=== PATIENT | male | born 1960 | race African-American/Black ===

== ENCOUNTER 2020-04-03 19:35 | Observation (INO) ==
[2020-04-03 20:01] LABS: Basophils # 0.1 10*3/uL (0.0-0.2); Basophils % 1.1 % (0.0-0.8); Eosinophils # 0.1 10*3/uL (0.0-0.87); Eosinophils % 2.2 % (0.00-10.9); Hematocrit 51.3 VOL% (42.0-52.0); Hemoglobin 17.4 GM/DL (14.0-18.0); Immature Granulocytes % 0.2 %; Immature Granulocytes Absolute 0.01 #; Lymphocytes # 3.3 10*3/uL (1.4-4.0); Mean Corpuscular HGB Conc 33.9 GM/DL (32-36); Mean Corpuscular Volume 94.1 FL (87-102); Mean Platelet Volume 11.5 FL (9.6-12.0); Neutrophils % 35.5 % (38.7-73.9); Platelet Count 165 T/CUMM (130-400); Red Blood Count 5.45 MC/CUMM (3.8-5.5); Red Cell Distribution Width 13.7 % (9.3-17.3); White Blood Count 6.4 T/CUMM (4-12)
[2020-04-03 20:18] LABS: Albumin 4.1 G/DL (3.4-5.0); Bilirubin,Total 0.5 MG/DL (0.2-1.0); Osmolality,Calculated 272.8 MOS/KG (273-304); Potassium 4.1 MMOL/L (3.5-5.1); Total Protein 7.7 G/DL (6.4-8.3)
[2020-04-03] MEDS ORDERED: ONDANSETRON 4 MG/2 ML VIAL IV STA (20:19)
[2020-04-03] MEDS ORDERED: HYDROmorphone 2 MG/1 ML VIAL IV STA (20:19)
[2020-04-03] MEDS ORDERED: NITROGLYCERIN 2% OINT 1 INCH/GM PACK TOP STA (20:19)
[2020-04-03] MEDS ORDERED: ALUM/MAG/SIMETH/LIDO VISC 1:1 30 ML BOTTLE PO STA (20:19)
[2020-04-03] MEDS ORDERED: ASPIRIN 325 MG TABLET PO STA (20:19)
[2020-04-03] MEDS ORDERED: ENOXAPARIN 100 MG/ML SYRINGE SUBCUT STA (20:46)
[2020-04-03 20:51] LABS: PT Patient Result 10.4 SECS (9.8-11.9); Partial Thromboplastin Time 27.6 SECS (23.9-33.8)
[2020-04-03 21:00] LABS: Eosinophils 1 % (0-10); Lymphocytes 54 % (20-55); Macrocytosis Slight; Reactive Lymphocytes 2+; Segmented Neutrophils 37 % (50-85); Total Cells Counted 100
[2020-04-03 21:01] LABS: Platelet Estimate Normal
[2020-04-03] MEDS ORDERED: BISACODYL 5 MG TABLET PO PRN (21:41)
[2020-04-03] MEDS ORDERED: guaiFENesin/DM ER 600-30 MG TABLET PO PRN (21:41)
[2020-04-03] MEDS ORDERED: CALCIUM CARBONATE CHEW 500 MG TABLET PO PRN (21:41)
[2020-04-03] MEDS ORDERED: diphenhydrAMINE CAP 25 MG CAPSULE PO PRN (21:41)
[2020-04-03] MEDS ORDERED: PROMETHAZINE 25 MG/1 ML VIAL IM PRN (21:41)
[2020-04-03] MEDS ORDERED: ZALEPLON 5 MG CAPSULE PO PRN (21:41)
[2020-04-03] MEDS ORDERED: ONDANSETRON 4 MG/2 ML VIAL IV PRN (21:41)
[2020-04-03] MEDS ORDERED: ALUMINUM/MAGNES/SIMETH MAX STR 30 ML UDCUP PO PRN (21:41)
[2020-04-03] MEDS ORDERED: ACETAMINOPHEN 325 MG TABLET PO PRN (21:41)
[2020-04-03] MEDS ORDERED: DEXTROSE 50% 25 GM/50 ML VIAL IV PRN (21:41)
[2020-04-03] MEDS ORDERED: SIMETHICONE CHEW 125 MG TABLET PO PRN (21:41)
[2020-04-03] MEDS ORDERED: NICOTINE 21 MG/24 HR PATCH TRANSDERM PRN ×2 (21:41→21:44)
[2020-04-03] MEDS ORDERED: GLUCAGON 1 MG VIAL IM PRN (21:41)
[2020-04-03] MEDS ORDERED: hydrALAZINE 20 MG/1 ML VIAL IV PRN (21:41)
[2020-04-03] MEDS ORDERED: NITROGLYCERIN SL 0.4 MG TABLET SL PRN (21:44)
[2020-04-04 03:04] LABS: Basophils # 0.1 10*3/uL (0.0-0.2); Eosinophils # 0.2 10*3/uL (0.0-0.87); Eosinophils % 2.4 % (0.00-10.9); Hematocrit 47.1 VOL% (42.0-52.0); Hemoglobin 16.1 GM/DL (14.0-18.0); Lymphocytes # 3.7 10*3/uL (1.4-4.0); Lymphocytes % 60.2 % (21.2-54.2); Mean Corpuscular HGB Conc 34.2 GM/DL (32-36); Mean Corpuscular Volume 94.4 FL (87-102); Monocytes % 9.1 % (1.7-12.7); Neutrophils % 27.3 % (38.7-73.9); Platelet Count 143 T/CUMM (130-400); Red Blood Count 4.99 MC/CUMM (3.8-5.5); Red Cell Distribution Width 13.8 % (9.3-17.3); White Blood Count 6.2 T/CUMM (4-12)
[2020-04-04 03:33] LABS: Calcium 8.6 MG/DL (8.5-10.1); Osmolality,Calculated 273.7 MOS/KG (273-304); Potassium 4.3 MMOL/L (3.5-5.1)
[2020-04-04 03:43] LABS: Eosinophils 2 % (0-10); Lymphocytes 73 % (20-55); Platelet Estimate Normal; Segmented Neutrophils 22 % (50-85); Total Cells Counted 100
[2020-04-04] MEDS ORDERED: POTASSIUM CHLORIDE RIDER 10 MEQ in PREMIX 1 EACH IV PRN (08:50)
[2020-04-04] MEDS ORDERED: DIAZEPAM 5 MG TABLET PO ONE (08:50)
[2020-04-04] MEDS ORDERED: diphenhydrAMINE CAP 25 MG CAPSULE PO ONE (08:50)
[2020-04-04] MEDS ORDERED: MAGNESIUM SULF RIDER 2 GM in PREMIX 1 EACH IV PRN (08:50)
[2020-04-04] MEDS ORDERED: ASPIRIN EC 81 MG TABLET PO SCH (09:00)
[2020-04-04] MEDS ORDERED: PANTOPRAZOLE 40 MG TABLET PO SCH (09:00)
[2020-04-04] MEDS ORDERED: TICAGRELOR 90 MG TABLET PO SCH (09:00)
[2020-04-04] MEDS ORDERED: SODIUM CHLORIDE 0.9% 1,000 ML IV SCH (09:00)
[2020-04-04] MEDS ORDERED: METOPROLOL TARTRATE 25 MG TABLET PO SCH (09:00)
[2020-04-04] MEDS ORDERED: ENOXAPARIN 40 MG/0.4 ML SYRINGE SUBCUT SCH (09:00)
[2020-04-04] MEDS ORDERED: LIDOCAINE 1% 20 ML VIAL ONE (09:14)
[2020-04-04] MEDS ORDERED: fentaNYL 100 MCG/2 ML VIAL ONE (09:14)
[2020-04-04] MEDS ORDERED: MIDAZOLAM 2 MG/2 ML VIAL ONE (09:14)
[2020-04-04] MEDS ORDERED: NITROGLYCERIN DRIP 50 MG/250 ML BOTTLE IV ONE (09:18)
[2020-04-04] MEDS ORDERED: VERAPAMIL 5 MG/2 ML VIAL ONE (09:18)
[2020-04-04] MEDS ORDERED: ENOXAPARIN 30 MG/0.3 ML SYRINGE ONE (09:40)
[2020-04-04 16:36] VITALS: BP 132/71
[2020-04-04] MEDS ORDERED: ATORVASTATIN 20 MG TABLET PO SCH (21:00)
[2020-04-04] MEDS ORDERED: ATORVASTATIN 40 MG TABLET PO SCH (21:00)
== END 2020-04-04 17:26 | disposition home or self-care (01) ==
LOC: N.ED 19:35 → N.EDINP 19:35 → SUATTDRO 21:41 → N.TELEN 22:46
PROVIDERS: ADMIT Internal Medicine Geriatric Medicine; ATTEND Internal Medicine Geriatric Medicine

== ENCOUNTER 2020-04-16 09:56 | Inpatient (IN) ==
[2020-04-16] MEDS ORDERED: GLUCAGON 1 MG VIAL IM PRN (10:33)
[2020-04-16] MEDS ORDERED: DEXTROSE 50% 25 GM/50 ML VIAL IV PRN (10:33)
[2020-04-16] MEDS ORDERED: NITROGLYCERIN SL 0.4 MG TABLET SL PRN (10:49)
[2020-04-16] MEDS ORDERED: CLORAZEPATE 3.75 MG TABLET PO PRN (10:49)
[2020-04-16] MEDS ORDERED: SODIUM CHLORIDE 0.9% 1,000 ML IV SCH (11:00)
[2020-04-16] MEDS: CHLORHEXIDINE 4% SOLN 118 ML BOTTLE TOP SCH ×2 (15:30→20:35)
[2020-04-16 15:42] LABS: Basophils # 0.1 10*3/uL (0.0-0.2); Basophils % 1.1 % (0.0-0.8); Eosinophils # 0.1 10*3/uL (0.0-0.87); Eosinophils % 2.1 % (0.00-10.9); Hematocrit 50.9 VOL% (42.0-52.0); Hemoglobin 17.2 GM/DL (14.0-18.0); Immature Granulocytes % 0.2 %; Immature Granulocytes Absolute 0.01 #; Lymphocytes # 2.7 10*3/uL (1.4-4.0); Lymphocytes % 40.8 % (21.2-54.2); Mean Corpuscular HGB Conc 33.8 GM/DL (32-36); Mean Corpuscular Volume 94.1 FL (87-102); Mean Platelet Volume 11.7 FL (9.6-12.0); Monocytes % 13.9 % (1.7-12.7); Neutrophils % 41.9 % (38.7-73.9); Platelet Count 162 T/CUMM (130-400); Red Blood Count 5.41 MC/CUMM (3.8-5.5); White Blood Count 6.6 T/CUMM (4-12)
[2020-04-16 16:13] LABS: Albumin 3.8 G/DL (3.4-5.0); Bilirubin,Total 0.9 MG/DL (0.2-1.0); Calcium 8.9 MG/DL (8.5-10.1); Osmolality,Calculated 283.1 MOS/KG (273-304); Potassium 4.1 MMOL/L (3.5-5.1)
[2020-04-16 17:53] LABS: ABG HCO3 24.3 MMOL/L (20-26); ABG PCO2 42.3 MM HG (35-48); ABG PH 7.384 (7.35-7.45); ABG PO2 83.8 MM HG (80-95); ABG TCO2 20.9 MMOL/L (23-27)
[2020-04-16 17:54] LABS: ABG Oxygen Saturation 96.3 % (95-100)
[2020-04-16] MEDS: CHLORHEXIDINE 0.12% ORAL RINSE 60 ML BOTTLE SWISH/SPIT SCH (20:35)
[2020-04-17] MEDS ORDERED: PAPAVERINE 60 MG/2 ML VIAL ONE (04:21)
[2020-04-17] MEDS ORDERED: VANCOMYCIN 500 MG VIAL ONE (04:22)
[2020-04-17] MEDS ORDERED: VANCOMYCIN 1,000 MG VIAL ONE (04:22)
[2020-04-17] MEDS: CHLORHEXIDINE 4% SOLN 118 ML BOTTLE TOP SCH ×2 (04:53→17:17)
[2020-04-17] MEDS ORDERED: CEFUROXIME INJ 1,500 MG in SODIUM CHLORIDE 0.9% 100 ML IV ONE (05:00)
[2020-04-17] MEDS ORDERED: MIDAZOLAM 10 MG/2 ML VIAL ONE ×4 (05:35→09:32)
[2020-04-17] MEDS ORDERED: SODIUM CHLORIDE 0.9% 1,000 ML IV ONE (05:36)
[2020-04-17] MEDS ORDERED: SODIUM CHLORIDE 0.9% 250 ML IV ONE (05:36)
[2020-04-17] MEDS ORDERED: HEPARIN/NACL 0.9% 2 UNITS/ML 500 ML IV ONE (05:36)
[2020-04-17] MEDS ORDERED: PHENYLEPHRINE DRIP 20 MG/250 ML PREMIX IV ONE (05:36)
[2020-04-17] MEDS ORDERED: SUFentanil 250 MCG/5 ML AMP ONE ×2 (05:36→07:59)
[2020-04-17] MEDS ORDERED: AMINOCAPROIC ACID 5,000 MG/20 ML VIAL ONE ×4 (05:38→09:53)
[2020-04-17] MEDS ORDERED: LACTATED RINGERS 1,000 ML IV ONE (05:51)
[2020-04-17] MEDS ORDERED: LIDOCAINE 2% 5 ML VIAL ONE ×2 (05:53→10:23)
[2020-04-17] MEDS ORDERED: VECURONIUM 10 MG VIAL IV ONE ×5 (05:53→09:32)
[2020-04-17] MEDS ORDERED: ETOMIDATE 40 MG/20 ML VIAL IV ONE (05:53)
[2020-04-17] MEDS ORDERED: MINERAL OIL/PETROLATUM OPH OINT 3.5 GM TUBE ONE (06:06)
[2020-04-17] MEDS ORDERED: PHENYLEPHRINE 1 MG/10 ML SYRINGE IV ONE (06:10)
[2020-04-17] MEDS ORDERED: CALCIUM CHLORIDE 1,000 MG/10 ML VIAL IV ONE (06:13)
[2020-04-17 07:53] LABS: ABG Base Excess -0.9 MMOL/L (-2.5-2.5); ABG HCO3 23.7 MMOL/L (20-26); ABG PCO2 42.7 MM HG (35-48); ABG PH 7.368 (7.35-7.45); ABG TCO2 20.5 MMOL/L (23-27); Glucose Heart Surgery 106 MG/DL (74-106); Hematocrit Heart Surgery 50.5 PERCENT (42-52); Hemoglobin Heart Surgery 16.5 G/DL (14.0-18.0); Ionized Calcium Arterial 1.15 MMOL/L (1.21-1.46); PCO2 Patient Temp Arterial 42.7 MMHG; PH Patient Temp Arterial 7.368; Patient Temperature 37 CELCIUS; Potassium Heart/CVR 4.1 MMOL/L (3.5-5.1); Sodium Heart/CVR 141 MMOL/L (135-145)
[2020-04-17 07:58] LABS: Bilirubin,Urine Negative (Negative); Blood, Urine Negative (Negative); Glucose,Urine (UA) Negative (Negative); Ketones,Urine Negative (Negative); Mucus,Urine Occasional /LPF (Occasional); Nitrite,Urine Negative (Negative); Protein,Urine Negative; RBC,Urine 2 /HPF (0-4); Squamous Epithelial Cell,Urine Occasional /HPF (0-10); Urine Appearance CLEAR (Clear); Urine Color Yellow (Yellow); Urine Specific Gravity 1.017 (1.001-1.035); Urine Urobilinogen < 2.0 EU/DL (0.2-1.0); WBC,Urine <1 /HPF (0-6)
[2020-04-17] MEDS ORDERED: NITROGLYCERIN DRIP 50 MG/250 ML BOTTLE IV ONE (08:43)
[2020-04-17 09:18] LABS: Hemoglobin Heart Surgery 12.3 G/DL (14.0-18.0); PCO2 Patient Temp Venous 39.3 MM HG; PH Patient Temp Venous 7.424; PO2 Patient Temp Venous 42.1 MM HG; VBG Base Excess 0.5 MEQ/L (0-4); VBG HCO3 25.9 MEQ/L (24-28); VBG Oxygen Saturation 85.9 %; VBG PCO2 44.8 MMHG (41-51); VBG PH 7.38; VBG PO2 51.9 MMHG (17-40); VBG Total CO2 27.3 MMOL/L
[2020-04-17 09:19] LABS: Potassium Heart/CVR 6.6 MMOL/L (3.5-5.1)
[2020-04-17] MEDS ORDERED: ALBUMIN 5% 12.5 GM/250 ML VIAL IV ONE (09:29)
[2020-04-17] MEDS ORDERED: POTASSIUM CHLORIDE RIDER 100 ML IV ONE (09:29)
[2020-04-17] MEDS ORDERED: PHENYLEPHRINE DRIP 40 MG/250 ML PREMIX IV ONE (09:30)
[2020-04-17] MEDS ORDERED: PROTAMINE SULFATE 50 MG/5 ML VIAL IV ONE ×2 (09:30→10:24)
[2020-04-17] MEDS ORDERED: MIDAZOLAM 2 MG/2 ML VIAL ONE (09:30)
[2020-04-17] MEDS ORDERED: diphenhydrAMINE 50 MG/1 ML VIAL ONE (09:32)
[2020-04-17] MEDS ORDERED: FAMOTIDINE 20 MG/2 ML VIAL IV ONE (09:44)
[2020-04-17 09:51] LABS: Hemoglobin Heart Surgery 13.9 G/DL (14.0-18.0); PCO2 Patient Temp Venous 41.1 MM HG; PH Patient Temp Venous 7.392; PO2 Patient Temp Venous 43.4 MM HG; VBG Base Excess -0.6 MEQ/L (0-4); VBG HCO3 24.6 MEQ/L (24-28); VBG Oxygen Saturation 82.7 %; VBG PCO2 42.9 MMHG (41-51); VBG PH 7.377; VBG PO2 46.6 MMHG (17-40)
[2020-04-17] MEDS ORDERED: ESMOLOL 100 MG/10 ML VIAL IV ONE (09:51)
[2020-04-17 09:52] LABS: Potassium Heart/CVR 6.2 MMOL/L (3.5-5.1)
[2020-04-17] MEDS ORDERED: SEVOFLURANE 1 UNIT/15 MINUTE INH ONE (09:53)
[2020-04-17 10:20] LABS: ABG Base Excess -1.6 MMOL/L (-2.5-2.5); ABG HCO3 22.6 MMOL/L (20-26); ABG Oxygen Saturation 99.3 % (95-100); ABG PCO2 36.8 MM HG (35-48); ABG PH 7.407 (7.35-7.45); ABG PO2 355.4 MM HG (80-95); ABG TCO2 23.8 MMOL/L (23-27); Glucose Heart Surgery 182 MG/DL (74-106); Hemoglobin Heart Surgery 13.7 G/DL (14.0-18.0); Ionized Calcium Arterial 1.08 MMOL/L (1.21-1.46); PCO2 Patient Temp Arterial 36.8 MMHG; PH Patient Temp Arterial 7.407; PO2 Patient Temp Arterial 355.4 MM HG; Patient Temperature 37 CELCIUS; Potassium Heart/CVR 4.1 MMOL/L (3.5-5.1); Sodium Heart/CVR 132 MMOL/L (135-145)
[2020-04-17] MEDS ORDERED: DEXTROSE 5% KCL 20 MEQ 20 MEQ/1,000 ML BAG IV ONE (10:23)
[2020-04-17] MEDS ORDERED: MANNITOL 100 GM/500 ML BAG IV ONE (10:23)
[2020-04-17] MEDS ORDERED: methylPREDNISolone SOD SUC 1,000 MG/8 ML VIAL ONE (10:23)
[2020-04-17] MEDS ORDERED: ALBUMIN 25% 25 GM/100 ML VIAL IV ONE (10:23)
[2020-04-17] MEDS ORDERED: HEPARIN 10,000 UNIT/10 ML VIAL ONE (10:23)
[2020-04-17] MEDS ORDERED: MAGNESIUM SULFATE 5 GM/10 ML VIAL IV ONE (10:23)
[2020-04-17] MEDS ORDERED: PROTAMINE SULFATE 250 MG/25 ML VIAL IV ONE (10:23)
[2020-04-17] MEDS ORDERED: SODIUM BICARBONATE 50 MEQ/50 ML VIAL IV ONE (10:24)
[2020-04-17] MEDS ORDERED: FUROSEMIDE 20 MG/2 ML VIAL ONE (10:24)
[2020-04-17] MEDS ORDERED: ONDANSETRON 4 MG/2 ML VIAL IV PRN (10:49)
[2020-04-17] MEDS ORDERED: DEXTROSE 50% 25 GM/50 ML VIAL IV PRN ×2 (10:49)
[2020-04-17] MEDS ORDERED: LACTATED RINGERS 250 ML IV PRN (10:49)
[2020-04-17] MEDS ORDERED: HYDROmorphone 2 MG/1 ML VIAL IV PRN ×2 (10:49)
[2020-04-17] MEDS ORDERED: INSULIN REGULAR 100 UNIT/ML IV ONE (10:49)
[2020-04-17] MEDS ORDERED: MAGNESIUM SULF RIDER 4 GM in PREMIX 1 EACH IV PRN (10:49)
[2020-04-17] MEDS ORDERED: MIDAZOLAM 2 MG/2 ML VIAL IV PRN (10:49)
[2020-04-17] MEDS ORDERED: CHLORHEXIDINE 4% SOLN 118 ML BOTTLE TOP PRN (10:49)
[2020-04-17] MEDS ORDERED: CALCIUM CHLORIDE 1,000 MG/10 ML SYRINGE IV PRN (10:49)
[2020-04-17] MEDS ORDERED: MAGNESIUM SULF RIDER 2 GM in PREMIX 1 EACH IV PRN (10:49)
[2020-04-17] MEDS ORDERED: ACETAMINOPHEN 650 MG SUPP RECTAL PRN (10:49)
[2020-04-17] MEDS ORDERED: INSULIN REGULAR 100 UNIT/ML IV PRN (10:49)
[2020-04-17] MEDS ORDERED: NITROPRUSSIDE 100 MG in DEXTROSE 5% 250 ML IV PRN (10:49)
[2020-04-17] MEDS ORDERED: ALBUMIN 5% 12.5 GM in PREMIX 1 EACH IV PRN (10:49)
[2020-04-17] MEDS ORDERED: VECURONIUM 10 MG VIAL IV PRN ×2 (10:49)
[2020-04-17] MEDS ORDERED: MIDAZOLAM 10 MG/2 ML VIAL IV PRN (10:49)
[2020-04-17] MEDS ORDERED: PHENYLEPHRINE DRIP 40 MG/250 ML PREMIX IV PRN (10:49)
[2020-04-17] MEDS: LACTATED RINGERS 1,000 ML IV PRN ×4 (11:00→17:49)
[2020-04-17] MEDS ORDERED: SODIUM CHLORIDE 0.45% 1,000 ML IV SCH ×2 (11:00)
[2020-04-17] MEDS ORDERED: INSULIN REGULAR DRIP 100 ML IV SCH (11:00)
[2020-04-17] MEDS ORDERED: NITROPRUSSIDE 50 MG/2 ML VIAL ONE (11:21)
[2020-04-17 11:28] LABS: ABG HCO3 26.2 MMOL/L (20-26); ABG Oxygen Saturation 99.3 % (95-100); ABG PCO2 40.8 MM HG (35-48); ABG PH 7.422 (7.35-7.45); ABG TCO2 22.6 MMOL/L (23-27); Basophils % 0.4 % (0.0-0.8); Eosinophils # 0.1 10*3/uL (0.0-0.87); Eosinophils % 1.3 % (0.00-10.9); Glucose Heart Surgery 140 MG/DL (74-106); Hematocrit 43.6 VOL% (42.0-52.0); Hematocrit Heart Surgery 45.2 PERCENT (42-52); Hemoglobin Heart Surgery 14.7 G/DL (14.0-18.0); Immature Granulocytes % 0.9 %; Immature Granulocytes Absolute 0.06 #; Lymphocytes # 1.2 10*3/uL (1.4-4.0); Lymphocytes % 17.3 % (21.2-54.2); Mean Corpuscular HGB Conc 33.7 GM/DL (32-36); Mean Corpuscular Volume 95.2 FL (87-102); Mean Platelet Volume 11.3 FL (9.6-12.0); Neutrophils % 73.1 % (38.7-73.9); Platelet Count 164 T/CUMM (130-400); Potassium Heart/CVR 3.5 MMOL/L (3.5-5.1); Red Blood Count 4.58 MC/CUMM (3.8-5.5); Red Cell Distribution Width 12.8 % (9.3-17.3)
[2020-04-17 11:29] LABS: Hemoglobin 14.7 GM/DL (14.0-18.0)
[2020-04-17 11:39] LABS: PT Patient Result 11.1 SECS (9.8-11.9); Partial Thromboplastin Time 26.5 SECS (23.9-33.8)
[2020-04-17 11:51] LABS: Albumin 3.9 G/DL (3.4-5.0); Bilirubin,Total 1.2 MG/DL (0.2-1.0); CKMB % 3.7 %; Calcium 9.1 MG/DL (8.5-10.1); Osmolality,Calculated 283.3 MOS/KG (273-304); Potassium 3.6 MMOL/L (3.5-5.1); Total Protein 6.7 G/DL (6.4-8.3)
[2020-04-17 11:53] LABS: Troponin I 3.34 NG/ML (0.00-0.045)
[2020-04-17] MEDS: POTASSIUM CHLORIDE RIDER 20 MEQ in PREMIX 1 EACH IV PRN ×3 (12:00→19:20)
[2020-04-17] MEDS: POTASSIUM CHLORIDE RIDER 10 MEQ in PREMIX 1 EACH IV PRN ×2 (12:30→14:30)
[2020-04-17 14:15] LABS: ABG Base Excess 2.1 MMOL/L (-2.5-2.5); ABG HCO3 26.3 MMOL/L (20-26); ABG Oxygen Saturation 98.4 % (95-100); ABG PCO2 38.3 MM HG (35-48); ABG PH 7.442 (7.35-7.45); ABG TCO2 22.3 MMOL/L (23-27); Glucose Heart Surgery 127 MG/DL (74-106); Hematocrit Heart Surgery 44.4 PERCENT (42-52); Hemoglobin Heart Surgery 14.5 G/DL (14.0-18.0); Potassium Heart/CVR 3.7 MMOL/L (3.5-5.1)
[2020-04-17] MEDS: CHLORHEXIDINE 0.12% ORAL RINSE 60 ML BOTTLE SWISH/SPIT SCH ×2 (17:17→20:37)
[2020-04-17] MEDS: CEFUROXIME INJ 1,500 MG in SYRINGE 1 EACH IV SCH (17:49)
[2020-04-17 19:12] LABS: ABG Base Excess -0.7 MMOL/L (-2.5-2.5); ABG HCO3 23.8 MMOL/L (20-26); ABG Oxygen Saturation 98.8 % (95-100); ABG PCO2 40.1 MM HG (35-48); ABG PH 7.388 (7.35-7.45); ABG TCO2 20.6 MMOL/L (23-27); Glucose Heart Surgery 192 MG/DL (74-106); Hematocrit Heart Surgery 45.2 PERCENT (42-52); Hemoglobin Heart Surgery 14.7 G/DL (14.0-18.0); Potassium Heart/CVR 4.1 MMOL/L (3.5-5.1)
[2020-04-17 19:34] LABS: CKMB % 2.1 %
[2020-04-17 19:36] LABS: Troponin I 3.96 NG/ML (0.00-0.045)
[2020-04-17 22:54] LABS: ABG Base Excess -0.7 MMOL/L (-2.5-2.5); ABG HCO3 23.8 MMOL/L (20-26); ABG PCO2 42.7 MM HG (35-48); ABG PH 7.371 (7.35-7.45); ABG TCO2 21.2 MMOL/L (23-27); Glucose Heart Surgery 157 MG/DL (74-106); Hematocrit Heart Surgery 45.3 PERCENT (42-52); Hemoglobin Heart Surgery 14.8 G/DL (14.0-18.0); Potassium Heart/CVR 4.5 MMOL/L (3.5-5.1)
[2020-04-17 23:43] LABS: ABG Base Excess -1.1 MMOL/L (-2.5-2.5); ABG HCO3 23.5 MMOL/L (20-26); ABG Oxygen Saturation 97.1 % (95-100); ABG PCO2 43.1 MM HG (35-48); ABG PH 7.363 (7.35-7.45); ABG PO2 89.3 MM HG (80-95); Glucose Heart Surgery 160 MG/DL (74-106); Hematocrit Heart Surgery 45.7 PERCENT (42-52); Hemoglobin Heart Surgery 14.9 G/DL (14.0-18.0); Potassium Heart/CVR 4.5 MMOL/L (3.5-5.1)
[2020-04-18 00:46] LABS: ABG HCO3 23.6 MMOL/L (20-26); ABG Oxygen Saturation 97.8 % (95-100); ABG PCO2 41.8 MM HG (35-48); ABG PH 7.373 (7.35-7.45); ABG PO2 97.7 MM HG (80-95); ABG TCO2 20.7 MMOL/L (23-27); Glucose Heart Surgery 170 MG/DL (74-106); Hematocrit Heart Surgery 46.2 PERCENT (42-52); Hemoglobin Heart Surgery 15.1 G/DL (14.0-18.0); Potassium Heart/CVR 4.5 MMOL/L (3.5-5.1)
[2020-04-18 01:51] LABS: ABG Base Excess -1.2 MMOL/L (-2.5-2.5); ABG HCO3 23.3 MMOL/L (20-26); ABG Oxygen Saturation 95.4 % (95-100); ABG PCO2 40.8 MM HG (35-48); ABG PH 7.376 (7.35-7.45); ABG PO2 76.2 MM HG (80-95); ABG TCO2 20.4 MMOL/L (23-27); Glucose Heart Surgery 170 MG/DL (74-106); Hematocrit Heart Surgery 45.8 PERCENT (42-52); Hemoglobin Heart Surgery 14.9 G/DL (14.0-18.0); Potassium Heart/CVR 4.3 MMOL/L (3.5-5.1)
[2020-04-18 03:33] LABS: ABG Base Excess -0.3 MMOL/L (-2.5-2.5); ABG Oxygen Saturation 92.4 % (95-100); ABG PCO2 38.2 MM HG (35-48); ABG PH 7.408 (7.35-7.45); ABG PO2 62.7 MM HG (80-95); ABG TCO2 20.5 MMOL/L (23-27); Glucose Heart Surgery 159 MG/DL (74-106); Hematocrit Heart Surgery 45.5 PERCENT (42-52); Hemoglobin Heart Surgery 14.8 G/DL (14.0-18.0); Potassium Heart/CVR 4.1 MMOL/L (3.5-5.1)
[2020-04-18 03:44] LABS: Basophils % 0.1 % (0.0-0.8); Hematocrit 43.3 VOL% (42.0-52.0); Immature Granulocytes % 0.4 %; Immature Granulocytes Absolute 0.05 #; Lymphocytes # 0.7 10*3/uL (1.4-4.0); Lymphocytes % 5.4 % (21.2-54.2); Mean Corpuscular HGB Conc 34.6 GM/DL (32-36); Mean Corpuscular Volume 93.3 FL (87-102); Mean Platelet Volume 11.9 FL (9.6-12.0); Monocytes % 5.5 % (1.7-12.7); Neutrophils % 88.6 % (38.7-73.9); Platelet Count 187 T/CUMM (130-400); Red Blood Count 4.64 MC/CUMM (3.8-5.5); White Blood Count 13.4 T/CUMM (4-12)
[2020-04-18 04:10] LABS: CKMB % 1.8 %
[2020-04-18 04:15] LABS: Troponin I 4.61 NG/ML (0.00-0.045)
[2020-04-18 04:17] LABS: Albumin 3.9 G/DL (3.4-5.0); Bilirubin,Direct 0.28 MG/DL (0.0-0.20); Bilirubin,Total 1.2 MG/DL (0.2-1.0); Calcium 8.8 MG/DL (8.5-10.1); Osmolality,Calculated 278.7 MOS/KG (273-304); Potassium 4.4 MMOL/L (3.5-5.1); Total Protein 6.8 G/DL (6.4-8.3)
[2020-04-18] MEDS: CEFUROXIME INJ 1,500 MG in SYRINGE 1 EACH IV SCH ×2 (06:30→18:30)
[2020-04-18] MEDS ORDERED: NICOTINE 21 MG/24 HR PATCH TRANSDERM PRN (07:52)
[2020-04-18] MEDS: KETOROLAC 30 MG/1 ML VIAL IV SCH ×3 (08:08→21:42)
[2020-04-18] MEDS: ASPIRIN EC 325 MG TABLET PO SCH (08:33)
[2020-04-18] MEDS: METOPROLOL TARTRATE 25 MG TABLET PO SCH ×2 (08:34→21:41)
[2020-04-18] MEDS: CHLORHEXIDINE 0.12% ORAL RINSE 60 ML BOTTLE SWISH/SPIT SCH ×2 (08:35→21:41)
[2020-04-18] MEDS ORDERED: FLUTICASONE 50 MCG NASAL SPRAY 16 GM BOTTLE BOTH NARES SCH (09:00)
[2020-04-18] MEDS ORDERED: GLUCAGON 1 MG VIAL IM PRN (10:29)
[2020-04-18] MEDS ORDERED: POTASSIUM CHLORIDE 20 MEQ TABLET PO PRN (10:29)
[2020-04-18] MEDS ORDERED: oxyCODONE/ACETAMINOPHEN 5-325 MG TABLET PO PRN (10:29)
[2020-04-18] MEDS ORDERED: ALUMINUM/MAGNES/SIMETH MAX STR 30 ML UDCUP PO PRN (10:29)
[2020-04-18] MEDS ORDERED: MAGNESIUM HYDROXIDE SUSP 30 ML UDCUP PO PRN (10:29)
[2020-04-18] MEDS ORDERED: DEXTROSE 50% 25 GM/50 ML VIAL IV PRN (10:29)
[2020-04-18] MEDS ORDERED: ZALEPLON 5 MG CAPSULE PO PRN (10:29)
[2020-04-18] MEDS ORDERED: MAGNESIUM SULF RIDER 2 GM in PREMIX 1 EACH IV PRN (10:29)
[2020-04-18] MEDS ORDERED: MAGNESIUM SULF RIDER 4 GM in PREMIX 1 EACH IV PRN (10:29)
[2020-04-18] MEDS ORDERED: SODIUM CHLOR 0.45% KCL 20 MEQ 20 MEQ/1,000 ML BAG IV SCH (10:29)
[2020-04-18] MEDS ORDERED: ACETAMINOPHEN 325 MG TABLET PO PRN (10:29)
[2020-04-18] MEDS ORDERED: ONDANSETRON 4 MG/2 ML VIAL IV PRN (10:29)
[2020-04-18 11:27] LABS: CKMB % 1.3 %
[2020-04-18 11:29] LABS: Troponin I 3.24 NG/ML (0.00-0.045)
[2020-04-18] MEDS: PANTOPRAZOLE 40 MG TABLET PO SCH (11:45)
[2020-04-18] MEDS ORDERED: MAGNESIUM SULF RIDER 2 GM in PREMIX 1 EACH IV ONE (12:30)
[2020-04-18] MEDS: ALBUTEROL/IPRATROPIUM 3 ML NEB RESP TX SCH ×2 (13:13→19:24)
[2020-04-19] MEDS: ALBUTEROL/IPRATROPIUM 3 ML NEB RESP TX SCH ×4 (00:07→19:55)
[2020-04-19] MEDS: KETOROLAC 30 MG/1 ML VIAL IV SCH ×4 (04:44→21:07)
[2020-04-19] MEDS ORDERED: FUROSEMIDE 40 MG/4 ML VIAL IV ONE (06:00)
[2020-04-19 06:03] LABS: Basophils % 0.2 % (0.0-0.8); Hematocrit 40.3 VOL% (42.0-52.0); Hemoglobin 13.9 GM/DL (14.0-18.0); Immature Granulocytes % 0.6 %; Immature Granulocytes Absolute 0.12 #; Lymphocytes # 1.3 10*3/uL (1.4-4.0); Lymphocytes % 6.9 % (21.2-54.2); Mean Corpuscular HGB Conc 34.5 GM/DL (32-36); Mean Corpuscular Volume 94.4 FL (87-102); Mean Platelet Volume 11.9 FL (9.6-12.0); Neutrophils % 82.3 % (38.7-73.9); Platelet Count 167 T/CUMM (130-400); Red Blood Count 4.27 MC/CUMM (3.8-5.5); Red Cell Distribution Width 13.2 % (9.3-17.3); White Blood Count 18.6 T/CUMM (4-12)
[2020-04-19 06:27] LABS: Alanine Aminotransferase 46 U/L (16-61); Albumin 3.5 G/DL (3.4-5.0); Alkaline Phosphatase 52 U/L (45-117); Aspartate Amino Transferase 32 U/L (0-37); Bilirubin,Indirect 0.6 MG/DL (0.0-1.0); Blood Urea Nitrogen 22 MG/DL (7-18); Calcium 8.8 MG/DL (8.5-10.1); Carbon Dioxide 26 MMOL/L (21-32); Estimated Glom Filtration Rate 133 ML/MIN; Glucose 140 MG/DL (74-106); Osmolality,Calculated 281.5 MOS/KG (273-304); Potassium 4.4 MMOL/L (3.5-5.1); Sodium 139 MMOL/L (136-145); Total Protein 6.8 G/DL (6.4-8.3)
[2020-04-19] MEDS: ASPIRIN EC 325 MG TABLET PO SCH (08:43)
[2020-04-19] MEDS: DOCUSATE SODIUM 100 MG CAPSULE PO SCH (08:43)
[2020-04-19] MEDS: CHLORHEXIDINE 0.12% ORAL RINSE 60 ML BOTTLE SWISH/SPIT SCH ×2 (08:44→21:07)
[2020-04-19] MEDS: FERROUS SULFATE 325 MG TABLET PO SCH (08:44)
[2020-04-19] MEDS: PANTOPRAZOLE 40 MG TABLET PO SCH (08:44)
[2020-04-19] MEDS: METOPROLOL TARTRATE 25 MG TABLET PO SCH ×2 (08:44→21:07)
[2020-04-19] MEDS: ATORVASTATIN 20 MG TABLET PO SCH (21:06)
[2020-04-20] MEDS: ALBUTEROL/IPRATROPIUM 3 ML NEB RESP TX SCH ×4 (00:38→18:47)
[2020-04-20] MEDS: KETOROLAC 30 MG/1 ML VIAL IV SCH ×4 (04:35→21:32)
[2020-04-20 05:23] LABS: Basophils % 0.1 % (0.0-0.8); Eosinophils % 0.2 % (0.00-10.9); Hematocrit 39.4 VOL% (42.0-52.0); Hemoglobin 12.6 GM/DL (14.0-18.0); Immature Granulocytes % 0.4 %; Immature Granulocytes Absolute 0.06 #; Lymphocytes # 2.8 10*3/uL (1.4-4.0); Lymphocytes % 20.8 % (21.2-54.2); Mean Corpuscular Volume 98.5 FL (87-102); Mean Platelet Volume 11.9 FL (9.6-12.0); Monocytes % 13.6 % (1.7-12.7); Neutrophils % 64.9 % (38.7-73.9); Platelet Count 145 T/CUMM (130-400); Red Cell Distribution Width 13.2 % (9.3-17.3); White Blood Count 13.6 T/CUMM (4-12)
[2020-04-20 05:40] LABS: Alanine Aminotransferase 54 U/L (16-61); Albumin 3.2 G/DL (3.4-5.0); Alkaline Phosphatase 62 U/L (45-117); Aspartate Amino Transferase 35 U/L (0-37); Bilirubin,Indirect 0.4 MG/DL (0.0-1.0); Blood Urea Nitrogen 24 MG/DL (7-18); Calcium 8.2 MG/DL (8.5-10.1); Carbon Dioxide 30 MMOL/L (21-32); Estimated Glom Filtration Rate 133 ML/MIN; Glucose 93 MG/DL (74-106); Potassium 3.7 MMOL/L (3.5-5.1); Sodium 143 MMOL/L (136-145); Total Protein 6.1 G/DL (6.4-8.3)
[2020-04-20 05:41] LABS: Troponin I 0.806 NG/ML (0.00-0.045)
[2020-04-20] MEDS: ASPIRIN EC 325 MG TABLET PO SCH (09:07)
[2020-04-20] MEDS: DOCUSATE SODIUM 100 MG CAPSULE PO SCH (09:07)
[2020-04-20] MEDS: PANTOPRAZOLE 40 MG TABLET PO SCH (09:07)
[2020-04-20] MEDS: FERROUS SULFATE 325 MG TABLET PO SCH (09:07)
[2020-04-20] MEDS: CHLORHEXIDINE 0.12% ORAL RINSE 60 ML BOTTLE SWISH/SPIT SCH ×2 (09:07→21:31)
[2020-04-20] MEDS: METOPROLOL TARTRATE 25 MG TABLET PO SCH ×2 (09:07→21:31)
[2020-04-20] MEDS: ATORVASTATIN 20 MG TABLET PO SCH (21:31)
[2020-04-21] MEDS: ALBUTEROL/IPRATROPIUM 3 ML NEB RESP TX SCH ×4 (02:30→18:41)
[2020-04-21] MEDS: KETOROLAC 30 MG/1 ML VIAL IV SCH ×4 (04:16→21:28)
[2020-04-21 05:08] LABS: Basophils % 0.3 % (0.0-0.8); Eosinophils # 0.2 10*3/uL (0.0-0.87); Eosinophils % 1.9 % (0.00-10.9); Hematocrit 40.6 VOL% (42.0-52.0); Immature Granulocytes % 0.4 %; Immature Granulocytes Absolute 0.04 #; Lymphocytes # 2.9 10*3/uL (1.4-4.0); Lymphocytes % 28.5 % (21.2-54.2); Mean Corpuscular Volume 97.8 FL (87-102); Mean Platelet Volume 11.9 FL (9.6-12.0); Monocytes % 12.7 % (1.7-12.7); Neutrophils % 56.2 % (38.7-73.9); Platelet Count 155 T/CUMM (130-400); Red Blood Count 4.15 MC/CUMM (3.8-5.5); Red Cell Distribution Width 12.9 % (9.3-17.3); White Blood Count 10.3 T/CUMM (4-12)
[2020-04-21 05:41] LABS: Calcium 8.6 MG/DL (8.5-10.1); Osmolality,Calculated 280.4 MOS/KG (273-304); Potassium 3.9 MMOL/L (3.5-5.1)
[2020-04-21] MEDS: FERROUS SULFATE 325 MG TABLET PO SCH (09:23)
[2020-04-21] MEDS: PANTOPRAZOLE 40 MG TABLET PO SCH (09:23)
[2020-04-21] MEDS: METOPROLOL TARTRATE 25 MG TABLET PO SCH ×2 (09:23→21:27)
[2020-04-21] MEDS: ASPIRIN EC 325 MG TABLET PO SCH (09:23)
[2020-04-21] MEDS: DOCUSATE SODIUM 100 MG CAPSULE PO SCH (09:23)
[2020-04-21] MEDS: CHLORHEXIDINE 0.12% ORAL RINSE 60 ML BOTTLE SWISH/SPIT SCH ×2 (09:24→21:31)
[2020-04-21] MEDS: ATORVASTATIN 20 MG TABLET PO SCH (21:28)
[2020-04-22] MEDS: ALBUTEROL/IPRATROPIUM 3 ML NEB RESP TX SCH ×2 (02:14→07:10)
[2020-04-22] MEDS: KETOROLAC 30 MG/1 ML VIAL IV SCH (04:27)
[2020-04-22 05:03] LABS: Basophils % 0.3 % (0.0-0.8); Eosinophils # 0.3 10*3/uL (0.0-0.87); Eosinophils % 2.9 % (0.00-10.9); Hematocrit 42.5 VOL% (42.0-52.0); Hemoglobin 13.8 GM/DL (14.0-18.0); Immature Granulocytes % 0.3 %; Immature Granulocytes Absolute 0.03 #; Lymphocytes # 2.8 10*3/uL (1.4-4.0); Lymphocytes % 32.7 % (21.2-54.2); Mean Corpuscular HGB Conc 32.5 GM/DL (32-36); Mean Corpuscular Volume 96.6 FL (87-102); Mean Platelet Volume 11.6 FL (9.6-12.0); Monocytes % 10.9 % (1.7-12.7); Neutrophils % 52.9 % (38.7-73.9); Platelet Count 179 T/CUMM (130-400); Red Cell Distribution Width 12.6 % (9.3-17.3); White Blood Count 8.6 T/CUMM (4-12)
[2020-04-22 05:17] LABS: Calcium 8.5 MG/DL (8.5-10.1); Osmolality,Calculated 283.1 MOS/KG (273-304); Potassium 4.4 MMOL/L (3.5-5.1)
[2020-04-22 05:28] LABS: Alanine Aminotransferase 102 U/L (16-61); Albumin 3.2 G/DL (3.4-5.0); Alkaline Phosphatase 87 U/L (45-117); Aspartate Amino Transferase 46 U/L (0-37); Bilirubin,Indirect 0.9 MG/DL (0.0-1.0); Blood Urea Nitrogen 16 MG/DL (7-18); Calcium 8.7 MG/DL (8.5-10.1); Carbon Dioxide 27 MMOL/L (21-32); Estimated Glom Filtration Rate 142 ML/MIN; Glucose 92 MG/DL (74-106); Osmolality,Calculated 281.3 MOS/KG (273-304); Potassium 4.2 MMOL/L (3.5-5.1); Sodium 141 MMOL/L (136-145); Total Protein 6.4 G/DL (6.4-8.3)
[2020-04-22 05:29] LABS: Troponin I 0.279 NG/ML (0.00-0.045)
[2020-04-22] MEDS: ASPIRIN EC 325 MG TABLET PO SCH (08:17)
[2020-04-22] MEDS: METOPROLOL TARTRATE 25 MG TABLET PO SCH (08:18)
[2020-04-22] MEDS: PANTOPRAZOLE 40 MG TABLET PO SCH (08:18)
[2020-04-22] MEDS: DOCUSATE SODIUM 100 MG CAPSULE PO SCH (08:18)
[2020-04-22] MEDS: FERROUS SULFATE 325 MG TABLET PO SCH (08:18)
[2020-04-22] MEDS: CHLORHEXIDINE 0.12% ORAL RINSE 60 ML BOTTLE SWISH/SPIT SCH (08:21)
[2020-04-22 08:25] VITALS: BP 125/81
[2020-04-22] MEDS ORDERED: EZETIMIBE 10 MG TABLET PO SCH (09:00)
== END 2020-04-22 12:05 | disposition home health service (06) | DRG 236 ==
LOC: N.TELES 14:07 → N.CVR 04-17 10:37 → N.TELES 04-18 10:04